=== PATIENT | male | born 1995 | race Two or more races ===

== ENCOUNTER 2022-07-16 21:53 | Emergency (ER) | payer MEDICAID, OTHER ==
[~2022-07-16] VITALS: Ht 182.9 cm; Wt 72.6 kg
--- NOTE | 2022-07-16 22:04 | NUR ---
PAULA 89 FROM HOME FOR ETOH. PT ADMITTED ON DRINKING "A LOT OF " ALOCOHOL. PATIENT AROUSABLE TO PAINFUL STIMULI, BUT MORE SLEEPY. PATIENT IN BED 13 ON MONITOR AND POX AWAITING MD GLOVER.
--- NOTE | 2022-07-16 22:17 | NUR ---
BS 78
[2022-07-17 07:01] VITALS: BP 114/68
--- NOTE | 2022-07-17 07:01 | NUR ---
Patient discharged to home in stable condition. Written and verbal after care instructions given. Patient verbalizes understanding of instruction. pt ambulatory with a steady gait
== END 2022-07-17 07:02 | disposition home or self-care (01) ==
LOC: ER 21:55
DX: F10.129 Alcohol abuse with intoxication, unspecified (principal); F17.200 Nicotine dependence, unspecified, uncomplicated; Y90.9 Presence of alcohol in blood, level not specified
CPT/HCPCS: 82962-TC

== ENCOUNTER 2022-07-20 18:50 | Emergency (ER) | payer MEDICAID ==
[~2022-07-20] VITALS: Ht 180.3 cm; Wt 85.7 kg
--- NOTE | 2022-07-20 19:30 | NUR ---
PATIENT [id number] & [employer] C/O SUICIDAL IDEATION-NO SPECIFIC PLAN. PER PT ADMITS TO HAVE BEEN DRINKING FOR THE PAST 5 DAYS. PATIENT IS A/O X 4, RR EVEN AND UNLABORED NO SOB NOTED. VSS. NO ACUTE DISTRESS NOTED. [employer] PLACED PT ON HOLD SITTER AT BEDSIDE PATIENT BELONGINGS TAKEN AND PATIENT PLACED IN HOSPITAL GOWN.
[2022-07-20 20:39] LABS: BASOPHILS % (AUTO) 0.4 % (0.0-2.0); HEMATOCRIT 48 % (39-51); HEMOGLOBIN 16.5 g/dL (13.5-17.5); LYMPHOCYTES # (AUTO) 1.5 K/uL (0.8-4.8); LYMPHOCYTES % (AUTO) 16.4 % (20.0-44.0); MEAN CORPUSCULAR HGB CONC 35 g/dl (31.0-36.0); MEAN CORPUSCULAR VOLUME 88 fL (80-96); MONOCYTES # (AUTO) 0.5 K/uL (0.1-1.30); MONOCYTES % (AUTO) 5.7 % (2.0-12.0); NEUTROPHILS # (AUTO) 6.9 K/uL (1.8-8.9); NEUTROPHILS % (AUTO) 77.5 % (43.0-81.0); PLATELET COUNT (AUTO) 345 K/uL (150-450); RED BLOOD CELL COUNT(AUTO) 5.39 MIL/uL (4.5-6.0)
[2022-07-20 20:52] LABS: BILIRUBIN,URINE 1+ (NEGATIVE); COLOR,URINE YELLOW (YELLOW); LEUKOCYTE ESTERASE ,URINE NEGATIVE (NEGATIVE); NITRITE, URINE NEGATIVE (NEGATIVE); PH,URINE 6.5 (5.0-8.0); PROTEIN,URINE 3+ mg/dl (NEGATIVE); UGLUCOSE NEGATIVE (NEGATIVE)
[2022-07-20 21:30] LABS: ALBUMIN 4.4 g/dL (3.4-5.0); BILIRUBIN,DIRECT 0.2 mg/dL (0.0-0.2); BILIRUBIN,TOTAL 0.6 mg/dL (0.2-1.0); CALCIUM, SERUM 9.8 mg/dL (8.5-10.1); CREATININE 0.7 mg/dL (0.6-1.3); POTASSIUM 3.4 mmol/L (3.5-5.1); TOTAL PROTEIN, SERUM 8.3 g/dL (6.4-8.2)
[2022-07-20 22:54] LABS: BACTERIA,URINE RARE /HPF (None Seen); WBC,URINE 0-2 /HPF (0-3)
[2022-07-20 22:55] LABS: MUCUS,URINE Moderate /LPF (None Seen)
[2022-07-20] MEDS ORDERED: IV NS 0.9% 1,000 ML IV ONE (23:00)
[2022-07-20] MEDS ORDERED: ONDANSETRON HCL/PF 4 MG/2 ML VIAL IV ONE (23:00)
[2022-07-20] MEDS ORDERED: ONDANSETRON HCL/PF 4 MG/2 ML VIAL ONE (23:38)
[2022-07-21] MEDS ORDERED: LORAZEPAM 1 MG TABLET ONE (01:25)
[2022-07-21] MEDS ORDERED: LORAZEPAM 1 MG TABLET PO ONE (01:30)
[2022-07-21] MEDS ORDERED: TRAZODONE 50 MG TABLET ONE (02:10)
[2022-07-21] MEDS ORDERED: TRAZODONE 50 MG TABLET PO ONE (02:30)
--- NOTE | 2022-07-21 09:50 | NUR ---
Transfer Information: Accepted: [facility] Accepted by: Dr Hudson Room: 220-1 Call Report to: Jessica [phone] Transport Agency: [facility]
--- NOTE | 2022-07-21 10:56 | NUR ---
[facility] CALLED FOR TRANSPORT ETA 60 MINS.
[2022-07-21 11:45] VITALS: BP 119/64
--- NOTE | 2022-07-21 12:01 | NUR ---
REPORT GIVEN TO HERMINIA TREVIÑO OF [facility].
== END 2022-07-21 12:04 ==
LOC: ER 18:59
DX: F10.129 Alcohol abuse with intoxication, unspecified (principal); Y90.7 Blood alcohol level of 200-239 mg/100 ml; R45.851 Suicidal ideations; F17.200 Nicotine dependence, unspecified, uncomplicated
CPT/HCPCS: 99285; 96374; 96361; 85025; 80048; 80076; 81001; 36415; 87426; 80143; 80320; 80307; J2405; C9803; G0480; J7030